=== PATIENT | male | born 1965 | race African-American/Black ===

== ENCOUNTER 2019-01-09 16:48 | Emergency (ER) | payer OTHER ==
[2019-01-09 17:13] LABS: BASOPHILS # (AUTO) 0.1 10^3/uL (0.0-0.1); BASOPHILS % (AUTO) 1.3 %; EOSINOPHILS # (AUTO) 0.1 10^3/uL (0.0-0.7); EOSINOPHILS % (AUTO) 3.8 %; HGB - HEMOGLOBIN 14.1 g/dL (14.0-18.0); LYMPHOCYTES # (AUTO) 1.8 10^3/uL (1.5-3.5); MEAN CORPUSCULAR HEMOGLOBIN 30.7 pg (27.0-31.0); MEAN CORPUSCULAR HGB CONC 33.4 g/dL (32.0-36.0); MEAN CORPUSCULAR VOLUME 91.7 fL (80.0-94.0); MEAN PLATELET VOLUME 9.7 fL (7.4-11.4); MONOCYTES # (AUTO) 0.3 10^3/uL (0.0-1.0); MONOCYTES % (AUTO) 8.6 %; NEUTROPHILS # (AUTO) 1.5 10^3/uL (1.5-6.6); NEUTROPHILS % (AUTO) 39.3 %; PLT - PLATELET COUNT 287 10^3/uL (130-450); RED CELL DISTRIBUTION WIDTH 12.6 % (12.0-15.0); WHITE BLOOD COUNT 3.7 x10^3/uL (4.8-10.8)
[2019-01-09 17:26] LABS: ALBUMIN 4.5 g/dL (3.2-5.5); ALBUMIN/GLOBULIN RATIO 1.2 (1.0-2.2); BILIRUBIN,TOTAL 0.8 mg/dL (0.2-1.0); CALCIUM 9.8 mg/dL (8.5-10.3); TOTAL PROTEIN 8.3 g/dL (6.7-8.2)
--- NOTE | 2019-01-09 17:28 | XRAY Report ---
Reason: Chest Pain Procedure Date: 01/09/2019 Accession Number: [id number] / [id number] Procedure: XR - Chest 1 View X-Ray CPT Code: 39152 FULL RESULT: EXAM: CHEST RADIOGRAPHY EXAM DATE: 01/09/2019 05:05 PM. CLINICAL HISTORY: Chest pain since this morning. COMPARISON: None. TECHNIQUE: 1 view. FINDINGS: Lungs/Pleura: No focal opacities evident. No pleural effusion. No pneumothorax. Mediastinum: Within exam limitations, the cardiomediastinal contour is normal. Other: No bony abnormality identified. IMPRESSION: Normal single view chest. RADIA
--- NOTE | 2019-01-09 17:38 | ED Physician Documentation ---
PD HPI CHEST PAIN - Stated complaint Stated Complaint: CP - Chief complaint Chief Complaint: Cardiac - History obtained from History obtained from: Patient - History of Present Illness Timing - onset: How many hours ago (7) Timing - onset during: Rest Timing - duration: Hours (7) Timing - details: Gradual onset, Waxing and waning Pain level max: 3 Pain level now: 2 Quality: Pressure, Tightness Location: Left chest Radiation: Neck (occasionally), Back (occasionally) Improved by: Nothing Worsened by: No: Exertion, Inspiration, Eating, Movement, Palpation, Position Associated symptoms: No: Shortness of air, Diaphoresis, Nausea, Vomiting, Feeling faint / dizzy, General Weakness, Palpitations, Cough Similar symptoms before: Has not had sx before Recently seen: Not recently seen - Additional information Additional information: 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 No history of ACS. Review of Systems Constitutional: denies: Fever, Chills Throat: denies: Sore throat Cardiac: denies: Chest pain / pressure Respiratory: denies: Cough GI: denies: Nausea, Vomiting, Diarrhea : denies: Dysuria Skin: denies: Rash Musculoskeletal: denies: Neck pain, Back pain Neurologic: denies: Focal weakness, Numbness, Headache PD PAST MEDICAL HISTORY - Past Medical History Past Medical History: No - Past Surgical History Past Surgical History: No - Allergies Allergies/Adverse Reactions: Allergies Allergy/AdvReac Type Severity Reaction Status Date / Time No Known Drug Allergies Allergy Verified 01/09/19 16:59 - Social History Does the pt smoke?: No Smoking Status: Never smoker Does the pt drink ETOH?: Yes Does the pt have substance abuse?: No - Immunizations Immunizations are current?: Yes PD ED PE NORMAL - Vitals Vital signs reviewed: Yes - General General: Alert and oriented X 3, No acute distress, Well developed/nourished - HEENT HEENT: PERRL, Moist mucous membranes - Neck Neck: Supple, no meningeal sign, No JVD, No bruit - Cardiac Cardiac: RRR, No murmur, Strong equal pulses - Respiratory Respiratory: No respiratory distress, Clear bilaterally - Abdomen Abdomen: Soft, Non tender, Non distended - Back Back: No CVA TTP, No spinal TTP - Derm Derm: Warm and dry, No rash - Extremities Extremities: No deformity, No edema, No calf tenderness / cord - Neuro Neuro: Alert and oriented X 3, aging box hand 2-12 intact, No motor deficit, No sensory deficit - Psych Psych: Normal mood, Normal affect Results - Vitals Vitals: Vital Signs - 24 hr 01/09/19 01/09/19 01/09/19 16:54 18:59 19:52 Temperature 37 C Heart Rate 58 L 55 L 55 L Respiratory 18 14 16 Rate Blood Pressure 161/86 H 144/91 H 155/88 H O2 Saturation 99 100 100 Oxygen O2 Source Room air - EKG (time done) 1654 Rate: Rate (enter#) (63) Rhythm: NSR Anna: Normal Intervals: Normal MA Ischemia: ST elevation c/w repol - Labs Labs: Laboratory Tests 01/09/19 01/09/19 01/09/19 17:08 17:08 17:08 WBC 3.7 L RBC 4.60 L Hgb 14.1 Hct 42.2 MCV 91.7 MCH 30.7 MCHC 33.4 RDW 12.6 Plt Count 287 MPV 9.7 Neut # (Auto) 1.5 Lymph # (Auto) 1.8 [place]berry # (Auto) 0.3 Eos # (Auto) 0.1 Baso # (Auto) 0.1 Absolute Nucleated RBC 0.00 Nucleated RBC % 0.0 D-Dimer Sodium 140 Potassium 3.9 Chloride 99 L Carbon Dioxide 29 Anion Gap 12.0 BUN 16 Creatinine 1.0 Estimated GFR (MDRD) 78 L Glucose 101 H Calcium 9.8 Total Bilirubin 0.8 AST 21 ALT 31 Alkaline Phosphatase 51 Troponin I < 0.04 Total Protein 8.3 H Albumin 4.5 Globulin 3.8 Albumin/Globulin Ratio 1.2 Lipase 49 01/09/19 01/09/19 17:08 19:05 WBC RBC Hgb Hct MCV MCH MCHC RDW Plt Count MPV Neut # (Auto) Lymph # (Auto) [place] # (Auto) Eos # (Auto) Baso # (Auto) Absolute Nucleated RBC Nucleated RBC % D-Dimer < 200.0 L Sodium Potassium Chloride Carbon Dioxide Anion Gap BUN Creatinine Estimated GFR (MDRD) Glucose Calcium Total Bilirubin AST ALT Alkaline Phosphatase Troponin I < 0.04 Total Protein Albumin Globulin Albumin/Globulin Ratio Lipase - Rads (name of study) cxr Radiology: Prelim report reviewed, EMP read contemporaneously, See rad report (Normal single view chest. ) PD MEDICAL DECISION MAKING - ED course Complexity details: reviewed results, re-evaluated patient, considered differential (No ST elevation [place], no aortic dissection, no PE, no tension pneumothorax, no aortic aneurysm), d/w patient ED course: 53-year-old male presents to the emergency department with chest pain today. Negative troponin x2. Greater than 7 hours of symptoms prior to arrival. No acute EKG changes. No evidence of acute coronary syndrome at this time. No evidence of pulmonary embolus or aortic dissection. We will have him follow-up with his doctor for further care and a cardiac stress test. Will start on a baby aspirin for home. Patient counseled regarding signs and symptoms for which I believe and urgent re-evaluation would be necessary. Patient with good understanding of and agreement to plan and is comfortable going home at this time This document was made in part using voice recognition software. While efforts are made to proofread this document, sound alike and grammatical errors may occur. Departure - Departure Disposition: Home, Self Care Clinical Impression: Chest pain Qualifiers: Chest pain type: unspecified Qualified Code(s): R07.9 - Chest pain, unspecified Condition: Good Instructions: ED Chest Pain Atypical Unkn Cause Follow-Up: your,doctor in 3 days [Other] Comments: Started on a baby aspirin daily at home. Return if you worsen. Follow-up with your doctor in 3 days to schedule a cardiac stress test. Your testing is normal today. Discharge Date/Time: 01/09/19 19:53
[2019-01-09 19:53] VITALS: BP 155/88
== END 2019-01-09 19:53 | disposition home or self-care (01) ==
LOC: ED 16:48
DX: R07.9 Chest pain, unspecified (principal)
CPT/HCPCS: 36415; 71045; 80053; 83690; 84484; 85025; 85379; 93005; 99284